=== PATIENT | female | born 1950 | race Caucasian/White ===

== ENCOUNTER 2016-08-03 04:16 | Emergency (ER) | payer MEDICAID, MEDICARE ==
[~2016-08-03] VITALS: Ht 157.5 cm; Wt 70.0 kg
[2016-08-03] MEDS ORDERED: PHENYLEPHRINE HCL 0.5% 15ML NASAL SPRAY BOTHNSTRLS PRN (05:15)
[2016-08-03 06:10] VITALS: BP 123/74
== END 2016-08-03 06:37 | disposition home or self-care (01) ==
LOC: ER 04:17
DX: R04.0 Epistaxis (principal); E11.9 Type 2 diabetes mellitus without complications
CPT/HCPCS: 99282